=== PATIENT | male | born 1955 | race Caucasian/White ===

== ENCOUNTER → 2020-09-21 14:03 | Outpatient (CLI) | payer OTHER, SELFPAY ==
--- NOTE | 2020-09-21 | DI.ECHO.S_ITS ---
[facility]---------+ [facility] +---------+ : : [address] : [address] [place] : : : : [id number] : : : : Phone: [phone]+ Echocardiogram Report + + :Name: KELLEY ROSA Study Date: 09/21/2020 Height: 70 in : :[facility] Weight: 172 lb : : Gender: Male BSA: 2.0 m2 : :: 1955 Age: 64 yrs BP: 130/87 mmHg: :Reason For Study: encounter for general adult examination : :Ordering Physician: DERRICK, : :DEBRA Performed By: Casie Iraheta : :Referring: DEBRA MEZA : + + Interpretation Summary The left ventricle is normal in size.The ejection fraction is estimated to be 55-60%. The right ventricle is normal in size and function. There is mild aortic regurgitation. The IVC is of normal diameter and collapses greater than 50% with a sniff. This suggests a low right atrial pressure of 3 mm Hg. Procedure: A two-dimensional transthoracic echocardiogram with color flow and Doppler was performed. The study quality was technically adequate. There is no prior echocardiogram noted for this patient. The heart rate ranged between 52-99 bpm during the study. Left Ventricle: The left ventricle is normal in size. Left ventricular wall thickness is borderline increased. There is no thrombus. The ejection fraction is estimated to be 55-60%. There are no focal wall motion abnormalities. MV E/A: 1.1 Med Peak E' Sandeep: 7.2 cm/sec E/E' med: 10.1. Right Ventricle: The right ventricle is normal in size and function. Atria: The left atrium is mildly dilated. Right atrial size is normal. There is no Doppler evidence for an interatrial shunt. Mitral Valve: There is mild mitral annular calcification. There is trace mitral regurgitation. Aortic Valve: The aortic valve is trileaflet. The aortic valve opens well. There is no aortic valve stenosis. There is mild aortic regurgitation. Tricuspid Valve: The tricuspid valve is normal in structure and function. Pulmonary artery pressures cannot be estimated because of the lack of a measurable TR jet velocity but the IVC suggests a CVP of around 3 mmHg. There is trace tricuspid regurgitation. Pulmonic Valve: The pulmonic valve leaflets are thin and pliable; valve motion is normal. There is trace pulmonic regurgitation. Great Vessels: The aortic root is normal size. The ascending aorta is at the upper limits of normal in size. The IVC is of normal diameter and collapses greater than 50% with a sniff. This suggests a low right atrial pressure of 3 mm Hg. Pericardium/ Pleura There is no pericardial effusion. There is no pleural effusion. MMode/2D Measurements & Calculations LVIDd: 4.6 cm LVOT diam: 2.1 cm LVIDs: 3.0 cm Ao root diam: 3.8 cm FS: 34.6 % asc Aorta Diam: 3.7 cm EPSS: 1.2 cm Ao Arch Diam (Prox Trans): 2.7 cm IVSd: 1.1 cm LVPWd: 1.0 cm LV jiménez. diameter/BSA (cm/m^2): 2.3 LV sys. diameter/BSA (cm/m^2): 1.5 LA A2 area: 21.8 cm2 RA long axis: 4.5 cm LA A4 area: 21.0 cm2 RA area: 15.5 cm2 LA length (vol): 5.1 cm RA vol: 44.7 ml LA vol: 76.8 ml RA : 22.9 ml/m2 LA vol index: 39.2 ml/m2 IVC diam: 1.7 cm RVD1 (basal): 3.8 cm TAPSE: 2.0 cm Doppler Measurements & Calculations Ao V2 max: 117.0 cm/sec LVOT Max Sandeep: 95.0 cm/sec Ao V2 mean: 78.1 cm/sec LV V1 max P.6 mmHg Ao max P.5 mmHg LV V1 VTI: 22.7 cm Ao mean P.9 mmHg BEBE(I,D): 2.9 cm2 Ao V2 VTI: 27.3 cm BEBE(V,D): 2.8 cm2 sev ratio: 0.83 BEBE indexed to BSA (cm^2/m^2): 1.5 MV E max sandeep: 72.9 cm/sec PA V2 max: 61.4 cm/sec MV A max sandeep: 68.5 cm/sec PA V2 mean: 40.8 cm/sec MV E/A: 1.1 PA mean P.79 mmHg Med Peak E' Sandeep: 7.2 cm/sec PA pr(Accel): 24.2 mmHg E/E' med: 10.1 Lat Peak E' Sandeep: 8.6 cm/sec E/E' lat: 8.5 E/e' average: 9.3 MV dec time: 0.18 sec SV(LVOT): 78.4 ml Reading Physician:03:18 PM
== END ==
PROVIDERS: Referring Provider Physician Assistant; Visit Provider Physician Assistant
DX: Z00.00 Encounter for general adult medical examination without abnormal findings (principal); I35.1 Nonrheumatic aortic (valve) insufficiency
CPT/HCPCS: 93306